=== PATIENT | female | born 1980 | race African-American/Black ===

== ENCOUNTER 2017-04-23 09:03 | Emergency (ER) | payer MEDICAID ==
[~2017-04-23] VITALS: Ht 157.5 cm; Wt 113.0 kg
[2017-04-23] MEDS ORDERED: KETOROLAC 60MG/2ML VIAL IM ONE (15:00)
[2017-04-23 17:50] VITALS: BP 133/79
== END 2017-04-23 17:51 | disposition home or self-care (01) ==
LOC: ER 09:43
DX: S29.011A Strain of muscle and tendon of front wall of thorax, initial encounter (principal); V43.52XA Car driver injured in collision with other type car in traffic accident, initial encounter; Y93.89 Activity, other specified; Y92.89 Other specified places as the place of occurrence of the external cause; Y99.8 Other external cause status
CPT/HCPCS: 71045; 96372; 99283; J1885

== ENCOUNTER 2017-10-20 16:34 | Emergency (ER) | payer MEDICAID ==
[~2017-10-20] VITALS: Ht 167.6 cm; Wt 111.0 kg
[2017-10-20] MEDS ORDERED: IBUPROFEN 600MG TABLET PO ONE (21:30)
[2017-10-21] MEDS ORDERED: ACETAMINOPHEN 500MG TABLET PO ONE (00:45)
[2017-10-21] MEDS ORDERED: TETANUS, DIPHTHERIA, PERTUSSIS VAC/PF 0.5ML (>7YR OLD) IM ONE (00:45)
[2017-10-21] MEDS ORDERED: LIDOCAINE HCL 1% 20ML VIAL (Pyxis) INJ MC ONE (00:45)
[2017-10-21] MEDS ORDERED: LIDOCAINE HCL/PF 1% 10 MG/ML 5ML VIAL IJ SCH (01:00)
[2017-10-21] MEDS ORDERED: CLINDAMYCIN HCL 150MG CAPSULE PO ONE (01:30)
[2017-10-21 01:52] VITALS: BP 119/68
== END 2017-10-21 01:57 | disposition home or self-care (01) ==
LOC: ER 16:34
DX: L03.011 Cellulitis of right finger (principal); Z32.01 Encounter for pregnancy test, result positive
CPT/HCPCS: 10060; 81025; 90471; 90715; 99283; J3490; Z7610

== ENCOUNTER 2017-10-26 21:45 | Emergency (ER) | payer MEDICAID ==
[~2017-10-26] VITALS: Ht 162.6 cm; Wt 109.0 kg
[2017-10-27] MEDS ORDERED: SODIUM CHLORIDE 0.9% 1,000 ML IV ONE (01:54)
[2017-10-27 02:40] LABS: BASOPHILS % 0.2 % (0.0-2.0); EOSINOPHILS % 1.4 % (0.0-5.0); HEMOGLOBIN. 11.4 g/dL (12.0-16.0); LYMPHOCYTES % 26.8 % (20.0-50.0); MEAN CORPUSCULAR HEMOGLOBIN 25.3 pg (28.0-32.0); MEAN CORPUSCULAR VOLUME 77.7 fL (81.0-99.0); MEAN PLATELET VOLUME 7.3 fl (7.4-10.4); NEUTROPHILS % 63.6 % (40.0-76.0); PLATELET 269 x1000/uL (130-400); RED CELL DISTRIBUTION WIDTH 17.4 % (11.6-14.6)
[2017-10-27 03:42] LABS: CLARITY URINE CLEAR (CLEAR); COLOR URINE YELLOW (YELLOW); KETONES URINE NEGATIVE (NEGATIVE); LEUKOCYTE ESTERASE URINE 1+ (NEGATIVE); NITRITE URINE NEGATIVE (NEGATIVE); OCCULT BLOOD URINE 3+ (NEGATIVE); PROTEIN URINE NEGATIVE (NEGATIVE); SPECIFIC GRAVITY URINE 1.026 (1.005-1.030)
[2017-10-27 03:50] LABS: *AMPHETAMINES SCREEN URINE NEGATIVE (NEGATIVE); *BARBITURATES SCREEN URINE NEGATIVE (NEGATIVE); *BENZODIAZEPINES SCREEN URINE NEGATIVE (NEGATIVE); *COCAINE SCREEN URINE NEGATIVE (NEGATIVE)
[2017-10-27 03:51] LABS: CANNABINOID URINE SCREEN NEGATIVE (NEGATIVE); METHADONE URINE SCREEN NEGATIVE (NEGATIVE); OPIATES URINE SCREEN NEGATIVE (NEGATIVE); PHENCYCLIDINE URINE SCREEN NEGATIVE (NEGATIVE)
[2017-10-27 06:15] VITALS: BP 121/69
== END 2017-10-27 06:15 | disposition home or self-care (01) ==
LOC: ER 21:45
DX: O20.9 Hemorrhage in early pregnancy, unspecified (principal); O23.40 Unspecified infection of urinary tract in pregnancy, unspecified trimester; O34.10 Maternal care for benign tumor of corpus uteri, unspecified trimester; D25.9 Leiomyoma of uterus, unspecified; O34.80 Maternal care for other abnormalities of pelvic organs, unspecified trimester; N83.202 Unspecified ovarian cyst, left side; Z3A.00 Weeks of gestation of pregnancy not specified
CPT/HCPCS: 36415; 76801; 76817; 80305; 81003; 84702; 85025; 86850; 86900; 86901; 99285; J7030; Z7610

== ENCOUNTER 2025-02-17 17:15 | Emergency (ER) | payer MEDICAID ==
[~2025-02-17] VITALS: Ht 165.1 cm; Wt 113.0 kg
[2025-02-17 17:18] VITALS: O2SAT 98
[2025-02-17] MEDS: DIPHENHYDRAMINE 25MG CAPSULE PO ONE (19:37)
[2025-02-17] MEDS ORDERED: HYDR453.3 TP (19:53)
[2025-02-17 20:02] VITALS: BP 135/80; PULSE 71; RESP 14; TEMP 37.1; O2SAT 99
== END 2025-02-17 20:03 | disposition home or self-care (01) ==
LOC: ER 17:15
DX: L50.9 Urticaria, unspecified (principal)
CPT/HCPCS: 99283; Q0163